=== PATIENT | female | born 1955 ===

== ENCOUNTER 2025-01-30 05:16 | Day surgery (SDC) | payer OTHER ==
[2025-01-22 10:19] VITALS: BP 170/100
[2025-01-22 11:04] LABS: BASO % 0.3 % (0.1-1.2); EOS # 0.28 (0.04-0.54); EOS % 2.7 % (0.7-7.0); LYMPH # 2.52 (1.18-3.74); LYMPH % 24.0 % (19.3-53.1); MEAN PLATELET VOLUME 10.40 fl (9.4-12.4); MONO # 0.47 (0.24-0.82); MONO % 4.5 % (4.7-12.5); NEUT # 7.15 (1.56-6.13); NEUT % 68.1 % (34.0-71.1); RED CELL DISTRIBUTION WIDTH 15.8 % (11.6-14.4)
[2025-01-22 11:32] LABS: URINE APPEARANCE Cloudy; URINE BILIRRUBIN Negative (NEGATIVE); URINE BLOOD Large; URINE COLOR Orange; URINE GLUCOSE Negative (NEGATIVE); URINE KETONE Negative (NEGATIVE); URINE LEUKOCYTE Trace; URINE NITRATE Negative; URINE UROBILINOGEN 1.0 E.U./dl
[2025-01-22 11:37] LABS: URINE BACTERIA 251.9 uL (0.0-1933); URINE EPITHELIAL CELLS 47.3 uL (0.0-38.8); URINE RBC 10230.9 uL (0.0-20.8); URINE WBC 36.7 uL (0.0-23.2)
[2025-01-22 11:44] LABS: URINE CAST 0.29 uL (0.0-1.40); URINE PROTEIN 300 (NEGATIVE)
[2025-01-22 11:55] LABS: INR 1.01
[2025-01-22 12:06] LABS: ALT/SGPT 186.0 U/L (12-78); AST/SGOT 94.0 U/L (15-37); BILIRUBIN TOTAL 0.56 mg/dL (0.3-1.2); BUN CREA RATIO 11.0 (7.0-25.0); CREATININE SERUM 0.98 mg/dL (0.55-1.02); GFR 56.27; GLOBULINA 3.8 G/DL (2.4-3.5); GLUCOSE FASTING 66.0 mg/dL (65-100); OSMOLALITY SERUM 283.0 MOSM/KG (275-295)
[2025-01-22 12:30] LABS: RH NEGATIVE
[~2025-01-30] VITALS: Ht 152.4 cm; Wt 97.1 kg
[~2025-01-30 05:16] MED LIST: HEATHER0.35 MG; LEVOTHYROXINE100 MC1 PO
[2025-01-30] MEDS ORDERED: POVIDONE-IODINE 118 ML BOTT TOP ONE (08:00)
[2025-01-30] MEDS ORDERED: FAMOTIDINE/PF 20 MG/2 ML VIAL IV ONE (09:15)
[2025-01-30] MEDS ORDERED: KETOROLAC TROMETHAMINE 30 MG VIAL IV ONE (09:15)
[2025-01-30] MEDS ORDERED: MORPHINE SULFATE 4 MG/ML VIAL IV PRN (09:15)
[2025-01-30] MEDS ORDERED: ONDANSETRON HCL 2 MG/ML VIAL IV ONE (11:05)
[2025-01-30] MEDS ORDERED: MORPHINE SULFATE 4 MG/ML VIAL IV ONE (11:50)
== END 2025-01-30 15:05 | disposition home or self-care (01) ==
LOC: CIR.AMB 05:16
PROVIDERS: ATTEND General Practice
DX: N95.0 Postmenopausal bleeding (principal); N76.1 Subacute and chronic vaginitis

== ENCOUNTER 2025-03-20 08:00 | Inpatient (IN) | payer OTHER ==
[~2025-03-20] VITALS: Wt 98.9 kg
[2025-03-20 10:44] LABS: URINE APPEARANCE Cloudy; URINE BILIRRUBIN Negative (NEGATIVE); URINE BLOOD Large; URINE COLOR Orange; URINE GLUCOSE Negative (NEGATIVE); URINE KETONE Negative (NEGATIVE); URINE LEUKOCYTE Trace; URINE NITRATE Negative; URINE UROBILINOGEN 0.2 E.U./dl
[2025-03-20 10:49] LABS: URINE BACTERIA 308.3 uL (0.0-1933); URINE EPITHELIAL CELLS 10.9 uL (0.0-38.8); URINE RBC 7101.5 uL (0.0-20.8); URINE WBC 23.5 uL (0.0-23.2)
[2025-03-20 11:04] LABS: URINE CAST 0.00 uL (0.0-1.40); URINE PROTEIN 300 (NEGATIVE)
[2025-03-20 11:16] LABS: BASO % 0.4 % (0.1-1.2); EOS # 0.31 (0.04-0.54); EOS % 2.7 % (0.7-7.0); LYMPH # 2.59 (1.18-3.74); LYMPH % 22.3 % (19.3-53.1); MEAN PLATELET VOLUME 10.20 fl (9.4-12.4); MONO # 0.51 (0.24-0.82); MONO % 4.4 % (4.7-12.5); NEUT # 8.12 (1.56-6.13); NEUT % 69.8 % (34.0-71.1); RED CELL DISTRIBUTION WIDTH 15.8 % (11.6-14.4)
[2025-03-20 11:46] LABS: INR 1.04
[2025-03-20 12:52] LABS: ALT/SGPT 51.0 U/L (12-78); AST/SGOT 32.0 U/L (15-37); BILIRUBIN TOTAL 0.66 mg/dL (0.3-1.2); BUN CREA RATIO 11.0 (7.0-25.0); CREATININE SERUM 1.22 mg/dL (0.55-1.02); GFR 43.7; GLOBULINA 4.0 G/DL (2.4-3.5); GLUCOSE FASTING 66.0 mg/dL (65-100); OSMOLALITY SERUM 278.0 MOSM/KG (275-295)
[2025-03-20 14:08] VITALS: BP 146/87
[2025-03-20 14:20] LABS: RH NEGATIVE
[2025-03-27] MEDS ORDERED: METRONIDAZOLE/SODIUM CHLORIDE 500 MG/100 ML PIGGYBACK IV ONE (09:27)
[2025-03-27] MEDS ORDERED: CEFAZOLIN SODIUM 1,000 MG VIAL ONE ×2 (09:27→16:28)
[2025-03-27] MEDS ORDERED: ENOXAPARIN SODIUM 40 MG/0.4 ML SYRINGE SUBCUTANEO ONE (11:16)
[2025-03-27] MEDS ORDERED: BUPIVACAINE HCL/MPF 0.5% 30ML VIAL ONE (11:20)
[2025-03-27] MEDS ORDERED: LIDOCAINE HCL 1%/EPINEPHRINE 20ML VIAL IJ ONE (11:20)
[2025-03-27] MEDS ORDERED: SURGIFLO APPLICATOR 1 EACH APPL TOP ONE (15:52)
[2025-03-27] MEDS ORDERED: HEMOSTATIC MATRIX 1 KIT KIT TOP ONE (15:52)
[2025-03-27] MEDS ORDERED: ONDANSETRON HCL 2 MG/ML VIAL IV PRN (18:45)
[2025-03-27] MEDS ORDERED: MORPHINE SULFATE 4 MG/ML CARTRIDGE IV PRN (18:45)
[2025-03-27] MEDS ORDERED: RINGERS SOLUTION,LACTATED 1,000 ML IV SCH (18:45)
[2025-03-27] MEDS ORDERED: FAMOTIDINE/PF 20 MG/2 ML VIAL IV SCH (21:00)
[2025-03-27] MEDS ORDERED: KETOROLAC TROMETHAMINE 30 MG VIAL IV SCH (21:00)
[2025-03-27] MEDS ORDERED: ENALAPRILAT DIHYDRATE 1.25 MG/ML VIAL IV PRN (21:15)
[2025-03-27 22:42] VITALS: BP 166/96; O2SAT 98
[2025-03-27 23:09] LABS: BASO % 0.2 % (0.1-1.2); EOS # 0.00 (0.04-0.54); EOS % 0.0 % (0.7-7.0); LYMPH # 1.76 (1.18-3.74); LYMPH % 9.3 % (19.3-53.1); MEAN PLATELET VOLUME 10.20 fl (9.4-12.4); MONO # 0.53 (0.24-0.82); MONO % 2.8 % (4.7-12.5); NEUT # 16.60 (1.56-6.13); NEUT % 87.3 % (34.0-71.1); RED CELL DISTRIBUTION WIDTH 15.6 % (11.6-14.4)
[2025-03-28 02:58] VITALS: BP 146/82; O2SAT 97
[2025-03-28] MEDS ORDERED: CEFAZOLIN SODIUM 1,000 MG VIAL IV SCH (03:45)
[2025-03-28] MEDS ORDERED: METRONIDAZOLE/SODIUM CHLORIDE 500 MG/100 ML PIGGYBACK IV SCH (05:00)
[2025-03-28] MEDS ORDERED: LEVOTHYROXINE SODIUM 100 MCG TABLET PO SCH (06:00)
[2025-03-28 06:21] LABS: BASO % 0.1 % (0.1-1.2); EOS # 0.00 (0.04-0.54); EOS % 0.0 % (0.7-7.0); LYMPH # 1.56 (1.18-3.74); LYMPH % 10.4 % (19.3-53.1); MEAN PLATELET VOLUME 10.20 fl (9.4-12.4); MONO # 0.59 (0.24-0.82); MONO % 3.9 % (4.7-12.5); NEUT # 12.83 (1.56-6.13); NEUT % 85.3 % (34.0-71.1); RED CELL DISTRIBUTION WIDTH 15.8 % (11.6-14.4)
[2025-03-28 07:40] LABS: ALT/SGPT 63.0 U/L (12-78); AST/SGOT 45.0 U/L (15-37); BILIRUBIN TOTAL 0.39 mg/dL (0.3-1.2); BUN CREA RATIO 11.0 (7.0-25.0); CREATININE SERUM 1.16 mg/dL (0.55-1.02); GFR 46.32; GLOBULINA 3.3 G/DL (2.4-3.5); GLUCOSE FASTING 109.0 mg/dL (65-100); OSMOLALITY SERUM 282.0 MOSM/KG (275-295)
[2025-03-28 08:00] VITALS: BP 151/77; O2SAT 97
[2025-03-28] MEDS ORDERED: GABAPENTIN 300 MG CAPSULE PO PRN (10:45)
[2025-03-28] MEDS ORDERED: ACETAMINOPHEN 500 MG GEL..CAP PO PRN (10:45)
[2025-03-28] MEDS ORDERED: SIMETHICONE 125 MG CAPSULE PO NR (11:00)
[2025-03-28] MEDS ORDERED: DOCUSATE SODIUM 100MG CAP PO NR (11:00)
[2025-03-28 16:47] VITALS: BP 166/84; O2SAT 98
[2025-03-28] MEDS ORDERED: DOCUSATE SODIUM 100MG CAP PO SCH (17:00)
[2025-03-29 01:23] VITALS: BP 148/79; O2SAT 98
[2025-03-29 08:00] VITALS: BP 160/77; O2SAT 98
[2025-03-29] MEDS ORDERED: SIMETHICONE 125 MG CAPSULE PO SCH (09:00)
[2025-03-29] MEDS ORDERED: LOSARTAN POTASSIUM 25 MG TABLET PO SCH (17:00)
[2025-03-29 17:29] VITALS: BP 174/93; O2SAT 99
== END 2025-03-29 18:19 | disposition home or self-care (01) | DRG 742 ==
LOC: O/R 03-27 08:00 → SURH 03-27 08:00
PROVIDERS: ADMIT General Practice; ATTEND General Practice
PROC: 0UT24ZZ Resection of Bilateral Ovaries, Percutaneous Endoscopic Approach (ICD-10-PCS; 2025-03-27)
PROC: 0UT74ZZ Resection of Bilateral Fallopian Tubes, Percutaneous Endoscopic Approach (ICD-10-PCS; 2025-03-27)
PROC: 0DNU4ZZ Release Omentum, Percutaneous Endoscopic Approach (ICD-10-PCS; 2025-03-27)
PROC: 0DNW4ZZ Release Peritoneum, Percutaneous Endoscopic Approach (ICD-10-PCS; 2025-03-27)
PROC: 0TJB8ZZ Inspection of Bladder, Via Natural or Artificial Opening Endoscopic (ICD-10-PCS; 2025-03-27)
PROC: 0UT94ZZ Resection of Uterus, Percutaneous Endoscopic Approach (ICD-10-PCS; principal; 2025-03-27 11:15)
DX: D25.0 Submucous leiomyoma of uterus (principal); Z68.41 Body mass index [BMI] 40.0-44.9, adult; N80.03 Adenomyosis of the uterus; N84.0 Polyp of corpus uteri; N95.0 Postmenopausal bleeding; E66.9 Obesity, unspecified